=== PATIENT | male | born 1995 | race Caucasian/White ===

== ENCOUNTER 2017-06-30 18:52 | Emergency (ER) | payer BC ==
[~2017-06-30] VITALS: Ht 182.9 cm; Wt 81.8 kg
[2017-06-30 18:55] VITALS: BP 134/69; TEMP 99.2
[2017-06-30 20:05] VITALS: PULSE 67
== END 2017-06-30 20:05 | disposition home or self-care (01) ==
LOC: COL.ER 18:52
DX: S93.402A Sprain of unspecified ligament of left ankle, initial encounter (principal); W18.42XA Slipping, tripping and stumbling without falling due to stepping into hole or opening, initial encounter; X50.0XXA Overexertion from strenuous movement or load, initial encounter; Y92.322 Soccer field as the place of occurrence of the external cause

== ENCOUNTER → 2018-07-22 | Outpatient (CLI) | payer BC | LOC: COL.RAD 09:00 | DX: M19.071 Primary osteoarthritis, right ankle and foot (principal); M19.072 Primary osteoarthritis, left ankle and foot | CPT/HCPCS: J3301; Q9967 ==